=== PATIENT | female | born 1955 | race Caucasian/White ===

== ENCOUNTER → 2017-07-25 | Outpatient (CLI) | payer BC | LOC: FIMAGING 13:34 | PROVIDERS: ATTEND Obstetrics & Gynecology | DX: Z12.31 Encounter for screening mammogram for malignant neoplasm of breast (principal) | CPT/HCPCS: G0202 ==

== ENCOUNTER → 2018-08-15 | Outpatient (CLI) | payer OTHER | LOC: FIMAGING 16:12 | DX: Z12.31 Encounter for screening mammogram for malignant neoplasm of breast (principal) ==